=== PATIENT | male | born 1995 | race Caucasian/White ===

== ENCOUNTER 2017-06-18 06:01 | Day surgery (SDC) | payer BC ==
[2017-06-17 13:58] VITALS: BMI 23.6
--- NOTE | 2017-06-18 06:10 | HP ---
DATE OF ADMISSION: 06/18/2017 HISTORY OF PRESENT ILLNESS: This is a 21-year-old male with chronic GI symptoms. The pat ieazucena had abdominal pain, abdominal bloating, and intermittent diarrhea. The patient is on gluten fr ee diet several years ago. He says his symptoms actually got better after he went on a gluten free diet. The patient had routine blood test and was found to have anemia with a low vitamin B12 patient. The patient has had chronic GI symptoms with abdominal cramping, intermittent diarrhea. T he patient comes for an EGD and colonoscopy because of chronic GI symptoms. ALLERGIES: To LACTOSE and history of gluten intolerance. MEDICAL ILLNESS: 1. Chronic gastrointestinal symptoms. 2. Anemia. 3. Anxiety. 4. Acid reflux. 5. ADHD - leukopenia. PHYSICAL EXAMINATION: VITAL SIGNS: Pulse is 70, blood pressure 110/70. HEENT: Conjunctivae are clear. CARDIOVASCULAR: First and second heart sounds normal. LUNGS: Clear to auscultation. ABDOMEN: Soft to palpate. No organomegaly. No tenderness. No masses. Bowel sounds are normal. ADMITTING DIAGNOSES: Abdominal pain, intermittent diarrhea. PLAN: EGD and colonoscopy.
[2017-06-18] MEDS ORDERED: Propofol 200 MG/20 ML VIAL ONE (08:27)
--- NOTE | 2017-06-21 13:06 | OP ---
DATE OF PROCEDURE: 06/18/2017 OPERATIVE PROCEDURE: Colonoscopy. PREOPERATIVE DIAGNOSIS: A 21-year-old with abdominal pain, diarrhea, diarrhea been chroni c in nature. The patient underwent colonoscopy. POSTOPERATIVE DIAGNOSES: Normal ileal colonoscopy. PROCEDURE IN DETAIL: The patient was placed on his left lateral position and was given sedation by Anesthesia Department. A rectal exam was done before the scope was advanced into the rectum. No le sions were felt on rectal exam. A Pentax video colonoscope was introduced into the rectum and advan carlos all the way into the cecum. The appendiceal opening, ileocecal valve, and cecum, no pathology s een. The scope was advanced into the terminal ileum. The ileal mucosa appeared normal. Withdrawal from the ileum, ascending colon, hepatic flexure, no pathology seen. The transverse colon, splenic flexure, descending colon, sigmoid colon; no pathology seen. Retroflexion of the scope in the rect um showed no lesions.
--- NOTE | 2017-06-22 21:09 | OP ---
DATE OF PROCEDURE: 06/18/2017 SURGEON: Ami Vegas M.D. OPERATIVE PROCEDURE: Esophagogastroduodenoscopy with biopsy. PREOPERATIVE DIAGNOSES: A 21-year-old male with abdominal pain, dyspepsia, history of glu ten intolerance. This is chronic in nature. The patient is undergoing esophagogastroduodenoscopy. POSTOPERATIVE DIAGNOSIS: Normal exam except mild mucosal hyperemia at the gastric antrum. Biopsies were obtained from descending duodenum and also gastric body and fundus. PROCEDURE IN DETAIL: The patient was placed on his left lateral position and was given sedation by Anesthesia Department. A Pentax video gastroscope under direct vision was passed down the oropharyn x, past the GE junction, into the stomach and subsequently into the descending duodenum. The esopha geal mucosa appeared normal. The GE junction, no pathology seen. The fundus, cardia, gastric body, gastric antrum, no lesions seen except for mild mucosal hyperemia over the gastric antrum. The duo denal bulb and descending duodenum, no pathology. Random biopsies from the descending duodenum and also gastric body, gastric antrum. The stomach was decompressed and the scope removed. DISCHARGE PLANNING: This is a 21-year-old male with chronic gastrointestinal symptoms who came in for an EGD and colonoscopy. The EGD was basically negative. Colonoscopy showed no patholo gy. DISCHARGE RECOMMENDATIONS: 1. The patient advised to continue the medicines as before. 2. Advised to call me if he develops abdominal pain, hematochezia or fever. 3. To come back in the clinic next week.
== END 2017-06-18 10:18 | disposition home or self-care (01) ==
LOC: SDC 06:01
PROVIDERS: ATTEND Internal Medicine Gastroenterology
PROC: 0DB78ZX Excision of Stomach, Pylorus, Via Natural or Artificial Opening Endoscopic, Diagnostic (ICD-10-PCS; principal; 2017-06-18)
PROC: 0DJD8ZZ Inspection of Lower Intestinal Tract, Via Natural or Artificial Opening Endoscopic (ICD-10-PCS; principal; 2017-06-18)
PROC: 0DB98ZX Excision of Duodenum, Via Natural or Artificial Opening Endoscopic, Diagnostic (ICD-10-PCS; principal; 2017-06-18)
DX: K31.89 Other diseases of stomach and duodenum (principal); D64.9 Anemia, unspecified; F41.9 Anxiety disorder, unspecified; K21.9 Gastro-esophageal reflux disease without esophagitis; E73.9 Lactose intolerance, unspecified; F90.1 Attention-deficit hyperactivity disorder, predominantly hyperactive type; Z91.011 Allergy to milk products; Z98.890 Other specified postprocedural states
CPT/HCPCS: 88305; 88312; J2704

== ENCOUNTER 2019-07-06 14:15 | Emergency (ER) | payer BC ==
[2019-07-06 15:37] LABS: #Lymphocytes 1.3 thou/uL (1.20-3.40); #Monocytes 0.5 thou/uL (0.11-0.59); #Neutrophils 8.6 thou/uL (1.40-6.50); %Basophils 0.4 % (0.0-1.0); %Eosinophils 0.3 % (0.0-10.0); %Lymphocytes 12.5 % (21.0-51.0); %Monocytes 4.6 % (0.0-10.0); %Neutrophils 82.3 % (42.0-75.0); Hemoglobin 14.5 g/dL (14.0-18.0); Mean Corpuscular HGB CONC 35.4 g/dL (32.0-36.0); Mean Corpuscular Volume 90.4 fL (78.0-98.0); Mean Platelet Volume 5.7 fL (7.4-10.4); Platelet Count 312 thou/uL (130-400); Red Blood Cell (RBC) Count 4.52 mill/uL (4.70-6.10); White Blood Cell (WBC) Count 10.5 thou/uL (4.8-10.8)
[2019-07-06 15:54] LABS: ALT (SGPT) 15 U/L (8-55); AST (SGOT) 17 U/L (5-34); Acetaminophen Less than 6.0 mcg/mL (10.0-30.0); Albumin 5.2 g/dL (3.5-5.0); Alcohol Less than 10 mg/dL (Less than 10); Alkaline Phosphatase 61 U/L (40-110); Anion Gap 18 mmol/L (10-20); BUN (Urea Nitrogen) 6 mg/dL (8.9-20.6); Bilirubin, Total 0.5 mg/dL (0.2-1.2); CK (CPK) 188 U/L (30-200); Calc. Creatinine Clearance 0 mL/min (70-130); Calcium 10.1 mg/dL (7.8-10.44); Carbon Dioxide 21 mmol/L (22-29); Chloride 100 mmol/L (98-107); Estimated GFR-MDRD Greater than 90; Globulin 2.8 g/dL (2.4-3.5); Glucose 101 mg/dL (70-105); Potassium 3.5 mmol/L (3.5-5.1); Salicylate Less than 8.0 mg/dL (15.0-30.0); Sodium 135 mmol/L (136-145)
[2019-07-06 15:59] LABS: Amphetamine Not Detected (NotDetected); Barbiturates Screen Not Detected (NotDetected); Benzodiazepine Screen Not Detected (NotDetected); Cocaine Metabolite Screen Not Detected (NotDetected); Medtox Reader # READER 1; Methadone Not Detected (NotDetected); Methamphetamine Not Detected (NotDetected); Opiate Screen Not Detected (NotDetected); Phencyclidine (PCP) Not Detected (NotDetected); THC/Cannabinoid Screen Not Detected (NotDetected); Tricyclic Screen Not Detected (NotDetected)
[2019-07-06 16:00] LABS: Medtox Control Line Valid? VALID (VALID); Oxycodone Screen Not Detected (NotDetected)
--- NOTE | 2019-07-08 14:43 | EKG ---
Test Reason : Blood Pressure : / mmHG Vent. Rate : 114 BPM Atrial Rate : 114 BPM P-R Int : 134 ms QRS Dur : 098 ms QT Int : 366 ms P-R-T Axes : 065 080 012 degrees QTc Int : 504 ms Sinus tachycardia Abnormal ECG Confirmed by LIZZIE GEIGER DO ([id number]), editor producer ANDREW GALDAMEZ ([id number]) on 07/08/2019 2:42:29 PM Referred By: Confirmed By:LIZZIE GEIGER DO
== END 2019-07-06 23:44 | disposition home or self-care (01) ==
LOC: ERS 14:15
DX: T48.4X2A Poisoning by expectorants, intentional self-harm, initial encounter (principal); T48.3X2A Poisoning by antitussives, intentional self-harm, initial encounter; R00.0 Tachycardia, unspecified
CPT/HCPCS: 80053; 80306; 80307; 82550; 84443; 85025; 93005; 96360; 96361